=== PATIENT | female | born 1965 | race Caucasian/White ===

== ENCOUNTER 2016-07-15 17:13 | Emergency (ER) | payer OTHER ==
--- NOTE | 2016-07-15 19:18 | ED CLINICAL REPORT ---
Clinical Report - Physicians/Mid Levels [facility] [address] [place] [address] 07/15/2016 17:17 Patient: GUILHERME GARCIA Time Seen: 17:33; initial patient contact. Arrived- By private vehicle. HISTORY OF PRESENT ILLNESS Chief Complaint: DENTAL PAIN. This started 3 months ago; pt with ongoing difficulty with left lower jaw infection due to infected root canal, was told by her dentist, if her swelling didn't improve to come to ER for IV possible admission for IV antibiotics. and is still present. There has been no pain. No sore throat or nasal discharge or congestion. She has had toothache, swelling of the jaw and jaw pain. Similar symptoms previously: Several times. Recent medical care: The patient was seen recently at another facility in the office. REVIEW OF SYSTEMS No fever, cough, chest pain or headache. She has had enlarged lymph nodes. All systems otherwise negative, except as recorded above. PAST HISTORY See nurses notes. Problems: Asthma. Migraine Headache. Diabetes Mellitus. Neck distonia . B/P . Medications: MetFORMIN HCl Oral 500 mg, 2x a day. Hydrochlorothiazide Oral 50 mg, daily. Metoprolol Tartrate Oral 50 mg, day. Bacloen 10mg , 1 tab bid, 5mg noon . Amitriptyline HCl Oral 30mg hs. Potassium Chloride Oral 30meq day . Vicodin Oral 5 mg, as needed. Flagyl Oral 500 mg, 3x a day. Clindamycin HCl Oral 300 mg, 3x a day. Allergies: PCN. SOCIAL HISTORY Smoker- current status unknown (cigarette). No drug use. FAMILY HISTORY Negative. ADDITIONAL NOTES The nursing notes have been reviewed with agreement regarding the chief complaint, HPI, ROS, PMH and patient medications and allergies. PHYSICAL EXAM Vital Signs: 07/15/2016 17:39 BP: 152/73. HR: 74. RR: 20. O2 saturation: 100%. Temp: 98.8 F. Pain level now: 5/10. Have been reviewed. Appearance: Alert. No acute distress. Head: Swelling of the mandible. Normal external inspection. No facial erythema. Eyes: Pupils equal, round and reactive to light. Conjunctivae and eyelids normal. ENT: Moderate generalized gingival erythema. No gingival bleeding or exudate. Mild left mandibular swelling present with tenderness. No jaw erythema or warmth. Pharynx normal. Lips normal. Uvula midline. Neck: Normal inspection. Trachea midline. No adenopathy. Thyroid normal. Neck supple. CVS: Normal heart rate and rhythm. Heart sounds normal. LABS, X-RAYS, AND EKG CT Face: No air fluid levels present. No bony lesion. Name: Guilherme Garcia : 1965 MR#: [id number] Ordering Provider: TATA ZHENG Exam(s): CT SINUS/FACIAL BONES W/CONT Date of Exam: 07/15/2016 __ PROCEDURE: CT SINUS/FACIAL BONES W/CONT CLINICAL INDICATION: Left mandibular pain and swelling. History of recent dental disease. TECHNIQUE: 90 ml of Isovue 300 injected intravenously and axial images were obtained through the face with coronal reformations. COMPARISON: None. FINDINGS: There is mild soft tissue swelling over the left submandibular region with mild of bilateral submandibular adenopathy (left greater than right). There is no evidence of fluid collection or abscess. Left mandible appears relatively normal. There is a floating tooth in the right mandible (dental disease). Axillary regions and sinuses appear normal. Parotid glands submandibular glands are normal. Airway appears normal. IMPRESSION: 1. Mild soft tissue swelling over the left mandibular region. 2. Mild bilateral submandibular adenopathy (left greater than right). 3. No evidence of fluid collection or abscess. 4. Findings discussed with ELIZABETH Thomas. All CT scans at this facility use dose modulation, iterative reconstruction, and/or weight-based dosing when appropriate to reduce radiation dose to as low as reasonably achievable. Electronically Final signed by:Arturo Pozo MD 07/15/2016 7:22:10 PM. The study was independently viewed by me, interpreted by the radiologist and discussed with the radiologist. Laboratory Tests: CBC w Diff: (SARAI: 07/15/2016 18:11) ( MsgRcvd 07/15/2016 18:55) Final results Test Result Flag Units (Reference) WHITE BLOOD COUNT 10.4 K/uL (4.5-11.5) RED BLOOD COUNT 5.35 H M/uL (4.00-5.20) HEMOGLOBIN 15.8 gm/dL (12.0-16.0) HEMATOCRIT 47.1 H % (36.0-46.0) MEAN CELL VOLUME 88 fL (80-100) MEAN CORPUSCULAR HGB 30 pg (26-34) MEAN CORPUSCULAR HGB CONC 34 g/dL (31-37) RED CELL DISTRIBUTION WIDTH 14.0 % (11.6-14.8) PLATELET COUNT 386 K/uL (150-400) NEUTROPHIL % 72.1 % (50-75) LYMPH % 19.7 L % (25-40) MONO % 5.5 % (3-14) EOSINOPHIL % 1.5 % (0-4) BASOPHIL % 1.2 % (0-2) SED RATE WESTERGREN 18 mm/hr (0-30) CMP: (SARAI: 07/15/2016 18:11) ( MsgRcvd 07/15/2016 18:45) Final results Test Result Flag Units (Reference) GLUCOSE 94 mg/dL (70-110) BUN 13 mg/dL (7-18) CREATININE 0.7 mg/dL (0.6-1.3) Estimated GFR >60 mL/min Estimated GFR- >60 mL/min Note: Persistent reduction over 3 months in eGFR<60 mL/min/1.73 m2 defines CKD. Patients with eGFR values>=60 mL/min/1.73 m2 may also have CKD if evidence ofpersistent proteinuria. Additional information may be foundat www.kidney.org. SODIUM 141 mmol/L (136-145) POTASSIUM 3.6 mmol/L (3.5-5.1) CHLORIDE 101 mmol/L (98-107) CARBON DIOXIDE 29 mmol/L (21-32) CALCIUM 10.1 mg/dL (8.5-10.1) TOTAL PROTEIN 8.7 H g/dL (6.4-8.2) ALBUMIN 4.2 g/dL (3.3-5.0) BILIRUBIN, TOTAL 0.3 mg/dL (0.0-1.0) ALKALINE PHOSPHATASE 71 U/L (46-116) AST (SGOT) 41 H U/L (15-37) ALT (SGPT) 60 U/L (12-78) . PROGRESS AND PROCEDURES Course of Care: Patient is stable. Physical exam findings are unchanged. The patient's symptoms are unchanged. CLINICAL IMPRESSION Acute localized periodontitis. INSTRUCTIONS No strenuous activity for two days as needed. Do not work for two days until better. Drink plenty of fluids. No dietary restrictions. (continue your antibiotics as prescribed, in addition we are giving you some prednisone for the soft tissue swelling. also recommended is a hi potency, multi strain probiotic daily for the next month. follow up with your oral surgeon/dentist. No fluid collection or stone were seen on Cat Scan of the area.). Warnings: Further evaluation is necessary. It is very important to follow up with a physician. Prescription Medications: Prednisone 10 mg: for 4 days. Dispense ten (10). No refills. (take 40mg for one day, then 30 mg for a day, then 20mg for a day then 10mg for last day.) Follow-up: Follow up with an oral surgeon. Reason for referral: dental infection. Understanding of the discharge instructions verbalized by patient. (Electronically signed by Tata Zheng PA-C 07/15/2016 20:18)
--- NOTE | 2016-07-15 19:18 | ED ORDER SUMMARY ---
..... Patient: GUILHERME CANELA OrderSheet [facility] VisitID: [id number] [address] [place] [address] 50y, F Registration Date/Time: 07/15/2016 ORDER SHEET Weight: 68.4 kg (stated) Allergies: PCN GENERAL ORDERS: CT Sinus/Facial Bones w Cont (?ludwigs angina, infected root canal, not improving with oral antibiotics.) Urgent (18:07 07/15/2016 ABlanchette PA-C) (Ack 18:14 RKaruga) (19:18 RFay) CBC w Diff Urgent (18:07 07/15/2016 ABlanchette PA-C) (Ack 18:14 RKaruga) (18:32 ALawrence ER Tech1) CMP Urgent (18:07 07/15/2016 ABlanchette PA-C) (Ack 18:14 RKaruga) (18:32 ALawrence ER Tech1) ESR Urgent (18:07 07/15/2016 ABlanchette PA-C) (Ack 18:14 RKaruga) (18:32 ALawrence ER Tech1) MEDICATION ORDERS: IV FLUIDS: IV Saline Lock (18:08 07/15/2016 ABlanchette PA-C) (18:19 Luis Felipe Stern.Carla) ORDER SHEET NOTES: [Electronically signed by Pamela Enciso R.N. (19:38 07/15/2016)] [Electronically signed by Shamika Taylor PA-C (20:18 07/15/2016)] [Electronically locked/signed by Pamela Enciso R.N. (19:38 07/15/2016)]
--- NOTE | 2016-07-15 19:18 | ED NURSING NOTES ---
Clinical Report - Nurses [place] [address] [place] [address] 07/15/2016 17:17 Patient: GUILHERME CANELA TRIAGE Triage time 17:40. Acuity: LEVEL 3. Chief Complaint: SWELLING OF JAW / FACE and (surg yony.). Alert. No acute distress. SEPSIS SCREEN: Sepsis Screen: negative. Negative (no infection suspected/documented). --17:57 Pamela Enciso R.N. 17:39 07/15/16. BP: 152/73. HR: 74. RR: 20. O2 saturation: 100%. Temp: 98.8 F. Pain level now: 510. --17:57 Pamela Enciso R.N. 17:39 07/15/16. BP: 152/73. HR: 74. RR: 20. O2 saturation: 100%. Temp: 98.8 F. Pain level now: 510. --17:57 Pamela Enciso R.N. Weight: 68.4 kg stated. Height/Length: 64 inches. BMI: 25.9. --17:55 Pamela Enciso R.N. Medications Clindamycin HCl Oral 300 mg, 3x a day. --17:43 Pamela Enciso R.N. Flagyl Oral 500 mg, 3x a day. --17:43 Pamela Enciso R.N. Vicodin Oral 5 mg, as needed. --17:44 Pamela Enciso R.N. Potassium Chloride Oral 30meq day . --17:47 Pamela Enciso R.N. Amitriptyline HCl Oral 30mg hs. --17:48 Pamela Enciso R.N. Bacloen 10mg , 1 tab bid, 5mg noon . --17:48 Pamela Enciso R.N. Metoprolol Tartrate Oral 50 mg, day. --17:49 Pamela Enciso R.N. Hydrochlorothiazide Oral 50 mg, daily. --17:50 Pamela Enciso R.N. MetFORMIN HCl Oral 500 mg, 2x a day. --17:50 Pamela Enciso R.N. Medication/allergy information source: the patient. --17:57 Pamela Enciso R.N. Allergies PCN. --17:45 Pamela Enciso R.N. History Arrived by private vehicle. Historian: patient. Accompanied by family. Primary physician (myla). Onset. (apr with bad tooth). She has a dental appointment scheduled (october 12). She has had facial pain. She has had swelling of the face and swelling of the jaw. Treatment DIETITIAN: None. PAST MEDICAL HX: Immunizations: up-to-date. The patient is post-menopausal. SOCIAL HX: Light tobacco smoker (cigarette)- less than 1/2 a pack per day. No alcohol use or drug use. FALL RISK ASSESSMENT: Fall risk assessment completed. No fall risk identified. NUTRITIONAL RISK ASSESSMENT: The nutritional risk assessment revealed no deficiencies. FUNCTIONAL ASSESSMENT: Functional assessment: no impairments noted. LEARNING NEEDS ASSESSMENT: The learning needs assessment revealed no barriers. SKIN INTEGRITY ASSESSMENT: Skin integrity risk assessment completed. No skin integrity risk identified. --17:57 Pamela Enciso R.N. PROBLEMS: Migraine Headache. Diabetes Mellitus. Asthma. Neck distonia . B/P . --17:54 Pamela Enciso R.N. ADDITIONAL SURGERIES: breast bx . Hand rt. --17:54 Pamela Enciso R.N. Interventions ID band on patient. To room. --17:57 Pamela Enciso R.N. PHYSICAL ASSESSMENT Ambulatory to room. GENERAL / NEURO / PSYCH: Alert. Oriented X 4. Appears in pain and anxious. HEENT: Voice within normal limits. Dental tenderness. Dental decay. Mucous membranes are pink. CVS: Capillary refill less than 2 seconds. SKIN: Skin is warm and dry. Normal skin turgor. --17:57 Pamela Enciso R.N. NURSING PROGRESS NOTES Patient gowned. Head of bed elevated. Two patient identifiers checked. Call light placed in reach. Side rails up x 1. Bed placed in lowest position. Brakes of bed on. Patient ready for evaluation. --17:58 Pamela Enciso R.N. 18:09 07/15/2016 Site #1 started via IV in the right antecubital space with an 20g angiocath; one attempt. Blood drawn: rainbow set. Labeled in the presence of the patient and sent to the lab. Saline lock flushed. --18:19 Herrera Rendon R.N. DISPOSITION / DISCHARGE 19:30. Condition at departure: improved. No learning barriers present. Reviewed medication(s) side effects, precautions, dosing and course information. Prescription(s) given to the patient. Reviewed referral to an oral surgeon. Patient verbalized understanding. Written instructions provided in Northern Irish. The patient was discharged home and accompanied by spouse. She left the Emergency Department ambulatory and via private vehicle. Spouse driving. Medication list reviewed and validated. --19:38 Pamela Enciso R.N. 19:35 07/15/16. BP: 144/74. HR: 78. RR: 18. O2 saturation: 100%. Temp: deferred. Pain level now: 08/30. 17:39 07/15/16. BP: 152/73. HR: 74. RR: 20. O2 saturation: 100%. Temp: 98.8 F. Pain level now: 08/30. --19:38 Pamela Enciso R.N. Locked/Released at 07/15/2016 19:38 by Pamela Enciso R.N.
--- NOTE | 2016-07-15 19:18 | ED ORDER SUMMARY ---
..... Patient: GUILHERME CANELA OrderSheet [facility] VisitID: [id number] [address] [place] [address] 50y, F Registration Date/Time: 07/15/2016 ORDER SHEET Weight: 68.4 kg (stated) Allergies: PCN GENERAL ORDERS: CT Sinus/Facial Bones w Cont (?ludwigs angina, infected root canal, not improving with oral antibiotics.) Urgent (18:07 07/15/2016 ABlanchette PA-C) (Ack 18:14 RKaruga) (19:18 RFay) CBC w Diff Urgent (18:07 07/15/2016 ABlanchette PA-C) (Ack 18:14 RKaruga) (18:32 ALawrence ER Tech1) CMP Urgent (18:07 07/15/2016 ABlanchette PA-C) (Ack 18:14 RKaruga) (18:32 ALawrence ER Tech1) ESR Urgent (18:07 07/15/2016 ABlanchette PA-C) (Ack 18:14 RKaruga) (18:32 ALawrence ER Tech1) MEDICATION ORDERS: IV FLUIDS: IV Saline Lock (18:08 07/15/2016 ABlanchette PA-C) (18:19 Luis Felipe Stern.Carla) ORDER SHEET NOTES: [Electronically signed by Pamela Enciso R.N. (19:38 07/15/2016)] [Electronically signed by Shamika Taylor PA-C (20:18 07/15/2016)] [Electronically locked/signed by Pamela Enciso R.N. (19:38 07/15/2016)]
--- NOTE | 2016-07-15 19:18 | ED NURSING NOTES ---
Clinical Report - Nurses [place] [address] [place] [address] 07/15/2016 17:17 Patient: GUILHERME CANELA TRIAGE Triage time 17:40. Acuity: LEVEL 3. Chief Complaint: SWELLING OF JAW / FACE and (surg yony.). Alert. No acute distress. SEPSIS SCREEN: Sepsis Screen: negative. Negative (no infection suspected/documented). --17:57 Pamela Enciso R.N. 17:39 07/15/16. BP: 152/73. HR: 74. RR: 20. O2 saturation: 100%. Temp: 98.8 F. Pain level now: 510. --17:57 Pamela Enciso R.N. 17:39 07/15/16. BP: 152/73. HR: 74. RR: 20. O2 saturation: 100%. Temp: 98.8 F. Pain level now: 510. --17:57 Pamlea Enciso R.N. Weight: 68.4 kg stated. Height/Length: 64 inches. BMI: 25.9. --17:55 Pamela Enciso R.N. Medications Clindamycin HCl Oral 300 mg, 3x a day. --17:43 Pamela Enciso R.N. Flagyl Oral 500 mg, 3x a day. --17:43 Pamela Enciso R.N. Vicodin Oral 5 mg, as needed. --17:44 Pamela Enciso R.N. Potassium Chloride Oral 30meq day . --17:47 Pamela Enciso R.N. Amitriptyline HCl Oral 30mg hs. --17:48 Pamela Enciso R.N. Bacloen 10mg , 1 tab bid, 5mg noon . --17:48 Pamela Enciso R.N. Metoprolol Tartrate Oral 50 mg, day. --17:49 Pamela Enciso R.N. Hydrochlorothiazide Oral 50 mg, daily. --17:50 Pamela Enciso R.N. MetFORMIN HCl Oral 500 mg, 2x a day. --17:50 Pamela Enciso R.N. Medication/allergy information source: the patient. --17:57 Pamela Enciso R.N. Allergies PCN. --17:45 Pamela Enciso R.N. History Arrived by private vehicle. Historian: patient. Accompanied by family. Primary physician (myla). Onset. (apr with bad tooth). She has a dental appointment scheduled (october 12). She has had facial pain. She has had swelling of the face and swelling of the jaw. 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 PAST MEDICAL HX: Immunizations: up-to-date. The patient is post-menopausal. SOCIAL HX: Light tobacco smoker (cigarette)- less than 1/2 a pack per day. No alcohol use or drug use. FALL RISK ASSESSMENT: Fall risk assessment completed. No fall risk identified. NUTRITIONAL RISK ASSESSMENT: The nutritional risk assessment revealed no deficiencies. FUNCTIONAL ASSESSMENT: Functional assessment: no impairments noted. LEARNING NEEDS ASSESSMENT: The learning needs assessment revealed no barriers. SKIN INTEGRITY ASSESSMENT: Skin integrity risk assessment completed. No skin integrity risk identified. --17:57 Pamela Enciso R.N. PROBLEMS: Migraine Headache. Diabetes Mellitus. Asthma. Neck distonia . B/P . --17:54 Pamela Enciso R.N. ADDITIONAL SURGERIES: breast bx . Hand rt. --17:54 Pamela Enciso R.N. Interventions ID band on patient. To room. --17:57 Pamela Enciso R.N. PHYSICAL ASSESSMENT Ambulatory to room. GENERAL / NEURO / PSYCH: Alert. Oriented X 4. Appears in pain and anxious. HEENT: Voice within normal limits. Dental tenderness. Dental decay. Mucous membranes are pink. CVS: Capillary refill less than 2 seconds. SKIN: Skin is warm and dry. Normal skin turgor. --17:57 Pamela Enciso R.N. NURSING PROGRESS NOTES Patient gowned. Head of bed elevated. Two patient identifiers checked. Call light placed in reach. Side rails up x 1. Bed placed in lowest position. Brakes of bed on. Patient ready for evaluation. --17:58 Pamela Enciso R.N. 18:09 07/15/2016 Site #1 started via IV in the right antecubital space with an 20g angiocath; one attempt. Blood drawn: rainbow set. Labeled in the presence of the patient and sent to the lab. Saline lock flushed. --18:19 Herrera Rendon R.N. DISPOSITION / DISCHARGE 19:30. Condition at departure: improved. No learning barriers present. Reviewed medication(s) side effects, precautions, dosing and course information. Prescription(s) given to the patient. Reviewed referral to an oral surgeon. Patient verbalized understanding. Written instructions provided in Niuean. The patient was discharged home and accompanied by spouse. She left the Emergency Department ambulatory and via private vehicle. Spouse driving. Medication list reviewed and validated. --19:38 Pamela Enciso R.N. 19:35 07/15/16. BP: 144/74. HR: 78. RR: 18. O2 saturation: 100%. Temp: deferred. Pain level now: 08/30. 17:39 07/15/16. BP: 152/73. HR: 74. RR: 20. O2 saturation: 100%. Temp: 98.8 F. Pain level now: 08/30. --19:38 Pamela Enciso R.N. Locked/Released at 07/15/2016 19:38 by Pamela Enciso R.N.
--- NOTE | 2016-07-15 19:25 | DIAGNOSTIC IMAGING REPORT ---
PROCEDURE: CT SINUS/FACIAL BONES W/CONT CLINICAL INDICATION: Left mandibular pain and swelling. History of recent dental disease. TECHNIQUE: 90 ml of Isovue 300 injected intravenously and axial images were obtained through the face with coronal reformations. COMPARISON: None. FINDINGS: There is mild soft tissue swelling over the left submandibular region with mild of bilateral submandibular adenopathy (left greater than right). There is no evidence of fluid collection or abscess. Left mandible appears relatively normal. There is a floating tooth in the right mandible (dental disease). Axillary regions and sinuses appear normal. Parotid glands submandibular glands are normal. Airway appears normal. IMPRESSION: 1. Mild soft tissue swelling over the left mandibular region. 2. Mild bilateral submandibular adenopathy (left greater than right). 3. No evidence of fluid collection or abscess. 4. Findings discussed with ELIZABETH Thomas. All CT scans at this facility use dose modulation, iterative reconstruction, and/or weight-based dosing when appropriate to reduce radiation dose to as low as reasonably achievable.
--- NOTE | 2016-07-15 20:18 | ED MAR SUMMARY ---
..... Medication Administration Record [facility] [address] [place], [place] [id number] Patient: GUILHERME CANELA Visit ID: [id number] 50y, F Weight: 68.4 kg Height/Length: 64 in BMI: 25.9 ALLERGIES: PCN
--- NOTE | 2016-07-15 20:18 | ED DISCHARGE INSTRUCTIONS ---
Patient: GUILHERME CANELA General Instructions [facility] VisitID: [id number] [address] [place] [address] 50y, F Registration Date/Time: 07/15/2016 Acute localized periodontitis. INSTRUCTIONS No strenuous activity for two days as needed. Do not work for two days until better. Drink plenty of fluids. No dietary restrictions. (continue your antibiotics as prescribed, in addition we are giving you some prednisone for the soft tissue swelling. also recommended is a hi potency, multi strain probiotic daily for the next month. follow up with your oral surgeon/dentist. No fluid collection or stone were seen on Cat Scan of the area.). Warnings: Further evaluation is necessary. It is very important to follow up with a physician. Prescription Medications: Prednisone 10 mg: for 4 days. Dispense ten (10). No refills. (take 40mg for one day, then 30 mg for a day, then 20mg for a day then 10mg for last day.) Follow-up: Follow up with an oral surgeon. Reason for referral: dental infection. Understanding of the discharge instructions verbalized by patient. ADDITIONAL INFORMATION Prednisone Oral tablet What is this medicine? PREDNISONE (PRED ni sone) is a corticosteroid. It is commonly used to treat inflammation of the skin, joints, lungs, and other organs. Common conditions treated include asthma, allergies, and arthritis. It is also used for other conditions, such as blood disorders and diseases of the adrenal glands. How should I use this medicine? Take this medicine by mouth with a glass of water. Follow the directions on the prescription label. Take this medicine with food. If you are taking this medicine once a day, take it in the morning. Do not take more medicine than you are told to take. Do not suddenly stop taking your medicine because you may develop a severe reaction. Your doctor will tell you how much medicine to take. If your doctor wants you to stop the medicine, the dose may be slowly lowered over time to avoid any side effects. Talk to your editorial clerk regarding the use of this medicine in children. Special care may be needed. What side effects may I notice from receiving this medicine? Side effects that you should report to your doctor or health primary care nurse practitioner as soon as possible: allergic reactions like skin rash, itching or hives, swelling of the face, lips, or tongue changes in emotions or moods changes in vision depressed mood eye pain fever or chills, cough, sore throat, pain or difficulty passing urine increased thirst swelling of ankles, feet Side effects that usually do not require medical attention (report to your doctor or health primary care nurse practitioner if they continue or are bothersome): confusion, excitement, restlessness headache nausea, vomiting skin problems, acne, thin and shiny skin trouble sleeping weight gain What may interact with this medicine? Do not take this medicine with any of the following medications: metyrapone mifepristone This medicine may also interact with the following medications: aminoglutethimide amphotericin B aspirin and aspirin-like medicines barbiturates certain medicines for diabetes, like glipizide or glyburide cholestyramine cholinesterase inhibitors cyclosporine digoxin diuretics ephedrine female hormones, like estrogens and control pills isoniazid ketoconazole NSAIDS, medicines for pain and inflammation, like ibuprofen or naproxen phenytoin rifampin toxoids vaccines warfarin What if I miss a dose? If you miss a dose, take it as soon as you can. If it is almost time for your next dose, talk to your doctor or health primary care nurse practitioner. You may need to miss a dose or take an extra dose. Do not take double or extra doses without advice. Where should I keep my medicine? Keep out of the reach of children. Store at room temperature between 15 and 30 degrees C (59 and 86 degrees F). Protect from light. Keep container tightly closed. Throw away any unused medicine after the expiration date. What should I tell my health care provider before I take this medicine? They need to know if you have any of these conditions: [place]'s syndrome diabetes glaucoma heart disease high blood pressure infection (especially a virus infection such as chickenpox, cold sores, or herpes) kidney disease liver disease mental illness myasthenia gravis osteoporosis seizures stomach or intestine problems thyroid disease an unusual or allergic reaction to lactose, prednisone, other medicines, foods, dyes, or preservatives or trying to get breast-feeding What should I watch for while using this medicine? Visit your doctor or health primary care nurse practitioner for regular checks on your progress. If you are taking this medicine over a prolonged period, carry an identification card with your name and address, the type and dose of your medicine, and your doctor's name and address. This medicine may increase your risk of getting an infection. Tell your doctor or health primary care nurse practitioner if you are around anyone with measles or chickenpox, or if you develop sores or blisters that do not heal properly. If you are going to have surgery, tell your doctor or health primary care nurse practitioner that you have taken this medicine within the last twelve months. Ask your doctor or health primary care nurse practitioner about your diet. You may need to lower the amount of salt you eat. This medicine may affect blood sugar levels. If you have diabetes, check with your doctor or health primary care nurse practitioner before you change your diet or the dose of your diabetic medicine. You have been given the following additional information: Prednisone Oral tablet No strenuous activity for two days as needed. Do not work for two days until better. (Electronically signed by Shamika Taylor PA-C 07/15/2016 20:18)
--- NOTE | 2016-07-15 20:18 | ED MED RECONCILIATION SUMMARY ---
Patient: GUILHERME CANELA Medication Reconciliation Report [facility] VisitID: [id number] [address] [place] [address] 50y, F Registration Date/Time: 07/15/2016 Weight: 68.4 kg Height/Length: 64 in. BMI: 25.9 ALLERGIES: PCN The patient's Home Medications are listed below: THE FOLLOWING MEDICATIONS NEED TO BE RECONCILED: Amitriptyline HCl Oral 30mg hs Bacloen 10mg , 1 tab bid, 5mg noon Clindamycin HCl Oral 300 mg, 3x a day Flagyl Oral 500 mg, 3x a day Hydrochlorothiazide Oral 50 mg, daily MetFORMIN HCl Oral 500 mg, 2x a day Metoprolol Tartrate Oral 50 mg, day Potassium Chloride Oral 30meq day Vicodin Oral 5 mg The source(s) of the original Home Medication information: patient The following Medications were given to the patient in the Emergency Department: None. The following Medications were prescribed to the patient: Prednisone 10 mg: for 4 days. Dispense ten (10). No refills.(take 40mg for one day, then 30 mg for a day, then 20mg for a day then 10mg for last day.) -- Shamika Taylor PA-C
--- NOTE | 2016-07-15 20:18 | ED MAR SUMMARY ---
..... Medication Administration Record [facility] [address], [place] [id number] Patient: GUILHERME CANELA Visit ID: [id number] 50y, F Weight: 68.4 kg Height/Length: 64 in BMI: 25.9 ALLERGIES: PCN
--- NOTE | 2016-07-15 20:18 | ED MED RECONCILIATION SUMMARY ---
Patient: GUILHERME CANELA Medication Reconciliation Report [facility] VisitID: [id number] [address] [place] [address] 50y, F Registration Date/Time: 07/15/2016 Weight: 68.4 kg Height/Length: 64 in. BMI: 25.9 ALLERGIES: PCN The patient's Home Medications are listed below: THE FOLLOWING MEDICATIONS NEED TO BE RECONCILED: Amitriptyline HCl Oral 30mg hs Bacloen 10mg , 1 tab bid, 5mg noon Clindamycin HCl Oral 300 mg, 3x a day Flagyl Oral 500 mg, 3x a day Hydrochlorothiazide Oral 50 mg, daily MetFORMIN HCl Oral 500 mg, 2x a day Metoprolol Tartrate Oral 50 mg, day Potassium Chloride Oral 30meq day Vicodin Oral 5 mg The source(s) of the original Home Medication information: patient The following Medications were given to the patient in the Emergency Department: None. The following Medications were prescribed to the patient: Prednisone 10 mg: for 4 days. Dispense ten (10). No refills.(take 40mg for one day, then 30 mg for a day, then 20mg for a day then 10mg for last day.) -- Shamika Taylor PA-C
--- NOTE | 2016-07-15 20:18 | ED DISCHARGE INSTRUCTIONS ---
Patient: GUILHERME CANELA General Instructions [facility] VisitID: [id number] [address] [place] [address] 50y, F Registration Date/Time: 07/15/2016 Acute localized periodontitis. INSTRUCTIONS No strenuous activity for two days as needed. Do not work for two days until better. Drink plenty of fluids. No dietary restrictions. (continue your antibiotics as prescribed, in addition we are giving you some prednisone for the soft tissue swelling. also recommended is a hi potency, multi strain probiotic daily for the next month. follow up with your oral surgeon/dentist. No fluid collection or stone were seen on Cat Scan of the area.). Warnings: Further evaluation is necessary. It is very important to follow up with a physician. Prescription Medications: Prednisone 10 mg: for 4 days. Dispense ten (10). No refills. (take 40mg for one day, then 30 mg for a day, then 20mg for a day then 10mg for last day.) Follow-up: Follow up with an oral surgeon. Reason for referral: dental infection. Understanding of the discharge instructions verbalized by patient. ADDITIONAL INFORMATION Prednisone Oral tablet What is this medicine? PREDNISONE (PRED ni sone) is a corticosteroid. It is commonly used to treat inflammation of the skin, joints, lungs, and other organs. Common conditions treated include asthma, allergies, and arthritis. It is also used for other conditions, such as blood disorders and diseases of the adrenal glands. How should I use this medicine? Take this medicine by mouth with a glass of water. Follow the directions on the prescription label. Take this medicine with food. If you are taking this medicine once a day, take it in the morning. Do not take more medicine than you are told to take. Do not suddenly stop taking your medicine because you may develop a severe reaction. Your doctor will tell you how much medicine to take. If your doctor wants you to stop the medicine, the dose may be slowly lowered over time to avoid any side effects. Talk to your automotive lube technician regarding the use of this medicine in children. Special care may be needed. What side effects may I notice from receiving this medicine? Side effects that you should report to your doctor or health daycare director as soon as possible: allergic reactions like skin rash, itching or hives, swelling of the face, lips, or tongue changes in emotions or moods changes in vision depressed mood eye pain fever or chills, cough, sore throat, pain or difficulty passing urine increased thirst swelling of ankles, feet Side effects that usually do not require medical attention (report to your doctor or health daycare director if they continue or are bothersome): confusion, excitement, restlessness headache nausea, vomiting skin problems, acne, thin and shiny skin trouble sleeping weight gain What may interact with this medicine? Do not take this medicine with any of the following medications: metyrapone mifepristone This medicine may also interact with the following medications: aminoglutethimide amphotericin B aspirin and aspirin-like medicines barbiturates certain medicines for diabetes, like glipizide or glyburide cholestyramine cholinesterase inhibitors cyclosporine digoxin diuretics ephedrine female hormones, like estrogens and control pills isoniazid ketoconazole NSAIDS, medicines for pain and inflammation, like ibuprofen or naproxen phenytoin rifampin toxoids vaccines warfarin What if I miss a dose? If you miss a dose, take it as soon as you can. If it is almost time for your next dose, talk to your doctor or health daycare director. You may need to miss a dose or take an extra dose. Do not take double or extra doses without advice. Where should I keep my medicine? Keep out of the reach of children. Store at room temperature between 15 and 30 degrees C (59 and 86 degrees F). Protect from light. Keep container tightly closed. Throw away any unused medicine after the expiration date. What should I tell my health care provider before I take this medicine? They need to know if you have any of these conditions: [place]'s syndrome diabetes glaucoma heart disease high blood pressure infection (especially a virus infection such as chickenpox, cold sores, or herpes) kidney disease liver disease mental illness myasthenia gravis osteoporosis seizures stomach or intestine problems thyroid disease an unusual or allergic reaction to lactose, prednisone, other medicines, foods, dyes, or preservatives or trying to get breast-feeding What should I watch for while using this medicine? Visit your doctor or health daycare director for regular checks on your progress. If you are taking this medicine over a prolonged period, carry an identification card with your name and address, the type and dose of your medicine, and your doctor's name and address. This medicine may increase your risk of getting an infection. Tell your doctor or health daycare director if you are around anyone with measles or chickenpox, or if you develop sores or blisters that do not heal properly. If you are going to have surgery, tell your doctor or health daycare director that you have taken this medicine within the last twelve months. Ask your doctor or health daycare director about your diet. You may need to lower the amount of salt you eat. This medicine may affect blood sugar levels. If you have diabetes, check with your doctor or health daycare director before you change your diet or the dose of your diabetic medicine. You have been given the following additional information: Prednisone Oral tablet No strenuous activity for two days as needed. Do not work for two days until better. (Electronically signed by Shamika Taylor PA-C 07/15/2016 20:18)
== END 2016-07-15 19:30 | disposition home or self-care (01) ==
LOC: ED SRH 17:13
DX: K05.219 Aggressive periodontitis, localized, unspecified severity (principal); E11.9 Type 2 diabetes mellitus without complications; J45.909 Unspecified asthma, uncomplicated; Z79.84 Long term (current) use of oral hypoglycemic drugs; Z79.899 Other long term (current) drug therapy; F17.210 Nicotine dependence, cigarettes, uncomplicated; Z88.0 Allergy status to penicillin
CPT/HCPCS: 90100; 95059; 95150